=== PATIENT | female | born 1985 | race Caucasian/White ===

== ENCOUNTER 2019-07-11 23:07 | Inpatient (IN) ==
[2019-07-11] MEDS ORDERED: ONDANSETRON INJ 2 MG/ML 2 ML VIAL IV STA (23:30)
[2019-07-11] MEDS ORDERED: BENZONATATE 100 MG CAPSULE PO ONE (23:30)
[2019-07-11] MEDS ORDERED: SODIUM CHLORIDE 0.9% 1000ML 1,000 ML IV ONE (23:30)
[2019-07-12 00:30] LABS: Hematocrit (blood only) 31.4 % (37-47); Hemoglobin 9.8 g/dL (12.0-16.0); Mean Corpuscular Hemoglobin 24.1 pg (25-34); Mean Corpuscular Hgb Conc 31.2 g/dL (32-36); Mean Corpuscular Volume 77.1 fL (80-100); Platelet Count 449 K/uL (130-400); RDW Coefficient of Variation 15.1 % (11.5-14.5); RDW Standard Deviation 42.7 fL (36.4-46.3); Red Blood Count 4.07 M/uL (4.2-5.4); White Blood Count 18.82 K/uL (4.8-10.8)
[2019-07-12 00:39] LABS: Albumin Level 2.6 gm/dl (3.4-5.0); Calcium 8.8 mg/dl (8.5-10.1); Creatinine Clr Calc Pharmacy 73.8 ml/min; Est GFR (African American) 98.7; Est GFR (Non-African American) 85.1; Potassium 3.5 mmol/L (3.5-5.1)
[2019-07-12 00:41] LABS: Albumin Globulin Ratio 0.6 (0.9-2); Bilirubin,Total 0.2 mg/dl (0.2-1); Globulin 4.7 gm/dl (2.5-4.0); Total Protein 7.3 gm/dl (6.4-8.2)
[2019-07-12] MEDS ORDERED: PIPERACILLIN/TAZOBACTAM 4.5 GM/120 ML BAG IV ONE (00:42)
[2019-07-12] MEDS ORDERED: PIPERACILL/TAZOBAC CONSULT ACTIVE PRN (00:42)
[2019-07-12] MEDS ORDERED: ACETAMINOPHEN 325 MG TAB PO STA (00:44)
[2019-07-12 00:46] LABS: Influenza A virus by PCR Neg for Influ A (Neg); Influenza B virus by PCR Neg for Influ B (Neg)
[2019-07-12] MEDS ORDERED: DOXYCYCLINE HYCLATE 100 MG in DEXTROSE 5% 100 ML IV STA (01:10)
[2019-07-12 01:13] LABS: Basophils # (auto) 0.03 K/uL (0-0.2); Basophils % (auto) 0.2 %; Eosinophils # (auto) 0.32 K/uL (0-0.5); Eosinophils % (auto) 1.7 %; Hypochromasia Present; Immature Granulocytes % (auto) 1.6 %; Lymphocytes # (auto) 2.96 K/uL (1.2-3.4); Lymphocytes % (auto) 15.7 %; Monocytes % (auto) 5.8 %; Neutrophils # (auto) 14.11 K/uL (1.4-6.5)
[2019-07-12] MEDS ORDERED: LACTATED RINGER'S 1,000 ML IV STA (01:18)
--- NOTE | 2019-07-12 01:50 | Emergency Department Note ---
Entered by Janiya Mora acting as a scribe for History of Present Illness General Chief complaint: Cough Stated complaint: COUGH, SICK FOR WEEK Time Seen by Provider: 07/11/19 23:22 Source: patient Limitations: no limitations History of Present Illness Onset (ago): day(s) 10 Location: head Pain Consistency: + constant Maximum Pain Intensity: 9 Quality: + other (flu-like) Associated symptoms: + denies other symptoms (rhinorrhea, vomiting), + headaches and + other (sore throat) The patient is a 33 year old female who presents to the Emergency Room with complaints constant of flu-like symptoms for the past 10 days. She reports that she has at [facility] for rehabilitation from opiate addiction, and she was put on a Z-pack and steroids after evaluation by the staff physician. The patient complains of a severe, "pounding" headache. She notes that she has a sore throat. The patient complains of feeling dehydrated. She complains of a loss of appetite, noting she's only had one meal in the past week. The patient denies any rhinorrhea. She denies any vomiting, but notes that she has been gagging frequently. She has a history of esophageal surgery and so cannot physically vomit. The patient notes that she received Trazadone and Seroquel, her night medications, [employer]. Home Medications Home Medications Medication Instructions Recorded Confirmed Type azithromycin [Zithromax Z-Adithya] 250 mg PO UD 07/11/19 07/11/19 History buprenorphine-naloxone [Suboxone] See Rx Instructions .ROUTE .COMPLEX 07/11/19 07/11/19 History buspirone 5 mg PO HS PRN 07/11/19 07/12/19 History dextromethorphan-guaifenesin 10 ml PO Q4 PRN MDD 6 doses in 24 07/11/19 07/11/19 History [Tussin DM] hours diazepam [Valium] 10 mg PO QPM 07/11/19 07/11/19 History gabapentin [Neurontin] 600 mg PO HS 07/11/19 07/11/19 History hydroxyzine pamoate [Vistaril] 50 mg PO TID 07/11/19 07/11/19 History lansoprazole 30 mg PO BID 07/11/19 07/11/19 History levetiracetam [Keppra] 500 mg PO BID 07/11/19 07/11/19 History melatonin 10 mg PO HS 07/11/19 07/11/19 History metoprolol tartrate [Lopressor] 50 mg PO BID 07/11/19 07/11/19 History prednisone 10 mg PO UD 07/11/19 07/11/19 History quetiapine [Seroquel] 100 mg PO HS 07/11/19 07/11/19 History trazodone 150 mg PO HS 07/11/19 07/11/19 History Allergies Allergy/AdvReac Type Severity Reaction Status Date / Time No Known Allergies Allergy Unverified 07/11/19 23:30 Past Med/Surg History Medical History Acid reflux Hiatal hernia Social History Preferred Language: Swiss Feels Safe at Home: Yes Smoking Status: Never smoker Review of Systems See HPI for pertinent positives & negatives. and A total of 10 systems reviewed and were otherwise negative Physical Exam Vital Signs Vital Signs - 24 hr 07/11/19 23:14 07/12/19 00:24 Temperature 37.8 C H 37.0 C Temperature Source Oral Oral Pulse Rate 111 H Pulse Rate [Bilateral] 84 Pulse Rhythm [Bilateral] Regular Pulse Strength [Bilateral] Normal Respiratory Rate 18 16 Respiratory Effort / Characteristics Non-Labored Spontaneous Respiratory Depth Normal Respiratory Pattern Regular Blood Pressure 92/64 L Blood Pressure [Right Arm] 89/59 L Blood Pressure Mean 73 Blood Pressure Mean [Right Arm] 69 Blood Pressure Position [Right Arm] Lying Pulse Oximetry 91 96 Oxygen Delivery Method Room Air Room Air Sepsis Recent Fever Within 48 Hours No Sepsis New/Unexplained Change in Mental Status No Sepsis Action Taken by Nursing No Action Required Constitutional: Vital signs reviewed. Eyes: Pupils are equal round reactive to light. Conjunctiva are noninjected. ENT: Minimal erythema to the throat without exudate. Mucous membranes are very dry. Neck supple without meningeal signs. No trismus. Respiratory: Clear to auscultation bilaterally. Breath sounds are equal bilaterally. Coughing throughout exam. Cardiovascular: Tachycardic. Heart rate 111. Regular rhythm. GI: Soft, nondistended and nontender. Bowel sounds are present. Musculoskeletal: No peripheral edema. No lower extremity tenderness. Integumentary: No cyanosis. Neurological: The patient is slightly sleepy from her medications. No focal deficits. Psychiatric: Normal affect. Course Course 2324: The patient was evaluated in room A12B. A complete history and physical exam was performed. 0053: I updated the patient and discussed the results with her. Her systolic blood pressure was 87. I recommended admission, and Dr. Casarez was paged. 0057: I spoke with Dr. Casarez, [facility] hospitalist, about the patient's case. He will further evaluate the patient. 0140: Blood pressure 89/59. Heart rate is down to 84. Administered Medications Discontinued Medications Acetaminophen (Tylenol) 650 mg PO NOW STA Stop: 07/12/19 00:45 Last Admin: 07/12/19 01:03 Dose: 650 mg Documented by: [id number] Benzonatate (Tessalon Perle) 100 mg PO NOW ONE Stop: 07/11/19 23:31 Last Admin: 07/12/19 00:24 Dose: 100 mg Documented by: [id number] Sodium Chloride (Nss 1000ml) 1,000 mls @ 999 mls/hr IV .Q1H1M ONE Stop: 07/12/19 00:30 Last Admin: 07/12/19 00:24 Dose: 999 mls/hr Documented by: [id number] Ondansetron HCl (Zofran) 4 mg IV NOW STA Stop: 07/11/19 23:31 Last Admin: 07/12/19 00:24 Dose: 4 mg Documented by: [id number] Critical Care Time Critical Care Time: Yes Total Critical Care Time: 35 I have personally spent approximately 35 minutes of critical care time in the direct management of this patient. This includes bedside care, interpretation of diagnostic studies, and testing, discussion with consultants, patient, and family members, and other required patient management activities. This approximate 35 minutes is in excess of all separately billable procedures. Medical Decision Making Differential Diagnosis The differential diagnosis includes: pneumonia, influenza, infectious mononucleosis, strep pharyngitis, and dehydration. Medical Records Attestation: I reviewed the patient's medical records. I did perform a limited focused review of portions of the patient's old chart on the electronic medical record. The patient has had no recent pertinent visits to this hospital. Home Medications Current Medication List: was personally reviewed by me Laboratory Data Attestation: I reviewed the patient's lab results. Result diagrams: 07/12/19 00:11 07/12/19 00:11 Lab Results 07/11/19 07/12/19 07/12/19 Range/Units 23:56 00:11 00:11 WBC (4.8-10.8) K/uL RBC (4.2-5.4) M/uL Hgb (12.0-16.0) g/dL Hct (37-47) % MCV (80-100) fL MCH (25-34) pg MCHC (32-36) g/dL RDW Std Deviation (36.4-46.3) fL RDW Coeff of Andriy (11.5-14.5) % Plt Count (130-400) K/uL MPV (7.4-10.4) fL Immature Gran % (Auto) % Neut % (Auto) % Lymph % (Auto) % [place] % (Auto) % Eos % (Auto) % Baso % (Auto) % Immature Gran # (Auto) (0.00-0.02) K/uL Neut # (Auto) (1.4-6.5) K/uL Lymph # (Auto) (1.2-3.4) K/uL [place] # (Auto) (0.11-0.59) K/uL Eos # (Auto) (0-0.5) K/uL Baso # (Auto) (0-0.2) K/uL Hypochromasia Sodium 136 (136-145) mmol/L Potassium 3.5 (3.5-5.1) mmol/L Chloride 101 (98-107) mmol/L Carbon Dioxide 30 (21-32) mmol/L Anion Gap 5.0 (3-11) BUN 12 (7-18) mg/dl Creatinine 0.88 (0.6-1.2) mg/dl Est Cr Clr Drug Dosing 73.8 ml/min Est GFR ( Amer) 98.7 Est GFR (Non-Af Amer) 85.1 BUN/Creatinine Ratio 14.0 (10-20) Glucose 122 H (70-99) mg/dl Calcium 8.8 (8.5-10.1) mg/dl Total Bilirubin 0.2 (0.2-1) mg/dl AST 4 L (15-37) U/L ALT 11 L (12-78) U/L Alkaline Phosphatase 40 L (45-117) U/L Total Protein 7.3 (6.4-8.2) gm/dl Albumin 2.6 L (3.4-5.0) gm/dl Globulin 4.7 H (2.5-4.0) gm/dl Albumin/Globulin Ratio 0.6 L (0.9-2) Monoscreen Negative (Negative) Influenza Type A (PCR) Neg for Influ A (Neg) Influenza Type B (PCR) Neg for Influ B (Neg) 07/12/19 Range/Units 00:11 WBC 18.82 H (4.8-10.8) K/uL RBC 4.07 L (4.2-5.4) M/uL Hgb 9.8 L (12.0-16.0) g/dL Hct 31.4 L (37-47) % MCV 77.1 L (80-100) fL MCH 24.1 L (25-34) pg MCHC 31.2 L (32-36) g/dL RDW Std Deviation 42.7 (36.4-46.3) fL RDW Coeff of Andriy 15.1 H (11.5-14.5) % Plt Count 449 H (130-400) K/uL MPV 8.0 (7.4-10.4) fL Immature Gran % (Auto) 1.6 % Neut % (Auto) 75.0 % Lymph % (Auto) 15.7 % [place] % (Auto) 5.8 % Eos % (Auto) 1.7 % Baso % (Auto) 0.2 % Immature Gran # (Auto) 0.30 H (0.00-0.02) K/uL Neut # (Auto) 14.11 H (1.4-6.5) K/uL Lymph # (Auto) 2.96 (1.2-3.4) K/uL [place] # (Auto) 1.10 H (0.11-0.59) K/uL Eos # (Auto) 0.32 (0-0.5) K/uL Baso # (Auto) 0.03 (0-0.2) K/uL Hypochromasia Present Sodium (136-145) mmol/L Potassium (3.5-5.1) mmol/L Chloride (98-107) mmol/L Carbon Dioxide (21-32) mmol/L Anion Gap (3-11) BUN (7-18) mg/dl Creatinine (0.6-1.2) mg/dl Est Cr Clr Drug Dosing ml/min Est GFR ( Amer) Est GFR (Non-Af Amer) BUN/Creatinine Ratio (10-20) Glucose (70-99) mg/dl Calcium (8.5-10.1) mg/dl Total Bilirubin (0.2-1) mg/dl AST (15-37) U/L ALT (12-78) U/L Alkaline Phosphatase (45-117) U/L Total Protein (6.4-8.2) gm/dl Albumin (3.4-5.0) gm/dl Globulin (2.5-4.0) gm/dl Albumin/Globulin Ratio (0.9-2) Monoscreen (Negative) Influenza Type A (PCR) (Neg) Influenza Type B (PCR) (Neg) Imaging Data Attestation: I personally reviewed and interpreted this imaging study as follows: Radiologist's Impression: XR CHEST 2V: Right middle lobe pneumonia. No c ardiomegaly. No pneumothorax. Blood Pressure Blood Pressure Findings: Low blood pressure Blood Pressure Disposition: Referred to patients primary care provider [facility] Narrative I did evaluate the patient as noted above. The patient is presenting with flulike symptoms for the past 10 days. She has a productive cough and has been on prednisone as well as azithromycin. She presents today because she continues to feel ill and has not been able to eat very much over the past week. She stated that she is lost 12 pounds. She feels very dehydrated. IV access was established. The patient was placed on a continuous diamond assorter. Cardiac monitoring: Indication: Sepsis, hypotension, and tachycardia. Rate and rhythm: Sinus tachycardia and normal sinus rhythm. No dysrhythmia. Patient is hypotensive on arrival but states that her normal systolic blood pressure is in the 90s. She does appear quite dehydrated and so I did treat her with a liter of normal saline IV. She was also given Zofran IV. I did obtain a rapid strep test which was negative. I did order and personally reviewed the images of the patient's chest x-ray as described above. She has a right middle lobe consolidation consistent with pneumonia. I did order blood cultures and a lactic acid. I did treat her with Zosyn IV. I did order and review the patient's blood work as noted in the electronic medical record. Her white blood cell count is over 18,000. She is anemic with a hemoglobin of 9.8. Electrolytes are unremarkable. Lactic acid is pending. I did reassess the patient. Her blood pressures slightly lower than it was on initial evaluation. I did recommend hospitalization for sepsis. She will need continued IV fluids and IV antibiotics. She was agreeable. I did discuss the case with the hospitalist and bilingual patient support caseworker. Impression & Plan Sepsis, Right middle lobe pneumonia, Hypotension, Dehydration, Anemia Discharge Plan Visit Data Chief Complaint: Cough Stated Complaint: COUGH, SICK FOR WEEK ED Provider: Osvaldo Brower Discharge Problem: Sepsis, Right middle lobe pneumonia, Hypotension, Dehydration, Anemia Patient Disposition: Being Evaluated by Hospitalist Forms Stand Alone Forms: My [facility] Prescriptions Prescriptions: No Action hydroxyzine pamoate [Vistaril] 50 mg Capsule 50 mg PO TID RF: 0 lansoprazole 30 mg Capsule,Delayed Release(Dr/Ec) 30 mg PO BID RF: 0 metoprolol tartrate [Lopressor] 50 mg Tablet 50 mg PO BID RF: 0 diazepam [Valium] 10 mg Tablet 10 mg PO QPM RF: 0 buprenorphine-naloxone [Suboxone] 2-0.5 mg Film See Rx Instructions .ROUTE .COMPLEX RF: 0 gabapentin [Neurontin] 600 mg Tablet 600 mg PO HS RF: 0 quetiapine [Seroquel] 100 mg Tablet 100 mg PO HS RF: 0 trazodone 150 mg Tablet 150 mg PO HS RF: 0 melatonin 10 mg Tablet 10 mg PO HS RF: 0 prednisone 10 mg Tablet 10 mg PO UD RF: 0 azithromycin [Zithromax Z-Adithya] 250 mg Tablet 250 mg PO UD RF: 0 levetiracetam [Keppra] 500 mg Tablet 500 mg PO BID RF: 0 buspirone 5 mg Tablet 5 mg PO HS PRN (Reason: Unknown) RF: 0 dextromethorphan-guaifenesin [Tussin DM] 10-100 mg/5 mL Syrup 10 ml PO Q4 MDD 6 doses in 24 hours PRN (Reason: Cough) RF: 0 Referrals Referrals: PCP,NO [Primary Care Provider] - Discharge Problem: Sepsis Qualifiers: Sepsis type: sepsis due to unspecified organism Sepsis acute organ dysfunction status: unspecified Qualified Code(s): A41.9 - Sepsis, unspecified organism Right middle lobe pneumonia Qualifiers: Pneumonia type: due to unspecified organism Qualified Code(s): J18.9 - Pneumonia, unspecified organism Hypotension Qualifiers: Hypotension type: unspecified hypotension type Qualified Code(s): I95.9 - Hypotension, unspecified Anemia Qualifiers: Anemia type: unspecified type Qualified Code(s): D64.9 - Anemia, unspecified The scribe's documentation has been prepared under my direction and personally reviewed by me in its entirety. I confirm that the note above accurately reflects all work, treatment, procedures, and medical decision making performed by me.
[2019-07-12 02:05] LABS: Reticulocyte % 0.8 % (0.5-2.0); Reticulocytes # 0.03 10^6/uL (0.02-0.10)
--- NOTE | 2019-07-12 02:07 | History & Physical Report ---
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 (Patient admits to heavy menses.) anxiety/mood disorder, at baseline opioid/benzodiazepine abuse as per records Hyperglycemia likely steroid-induced, rule out DM Medical telemetry Cultures, Doxycycline, Zosyn IVF Anemia work-up, transfuse PRBC if hemoglobin less than 7 and/or for symptomatic anemia Outpatient Gynecology work-up for heavy menses. Check hemoglobin A1c DVT prophylaxis. Lovenox subcu Full code History of Present Illness Chief Complaint: Worsening cough, S OB Primary Care Provider: Dr. Hilda Loco [place], [place] History obtained from patient and records. 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 2 weeks ago patient voluntarily committed herself to a drug rehab facility in [facility]. A few days later patient noted dry later junky cough symptoms without shortness of breath and chest pain. Patient denies aspiration, no fever, no chills. Patient not sure about sick contacts. Patient was told she just had a cold. Patient requested transfer to [facility], the local drug rehab facility last week due to displeasure with [place] rehab facility. Patient started by drug rehab physician on azithromycin and prednisone course for possible bronchitis. Worsening cough symptoms over the last few days. No chest pain. Some chills as per patient. Poor appetite. Patient received Zosyn at the ER. Medical History as above Surgical History : Henia operation, other intra-abdominal surgeries, tendon surgery left upper extremity Family History : Heart disease Personal/Social history : Non-smoker, no EtOH intake, currently unemployed, prior work as a energy specialist Allergies Allergy/AdvReac Type Severity Reaction Status Date / Time No Known Allergies Allergy Unverified 07/11/19 23:30 Home Medications Home Medications Medication Instructions Recorded Confirmed Type azithromycin [Zithromax Z-Adithya] 250 mg PO UD 07/11/19 07/11/19 History buprenorphine-naloxone [Suboxone] See Rx Instructions .ROUTE .COMPLEX 07/11/19 07/11/19 History buspirone 5 mg PO HS PRN 07/11/19 07/12/19 History dextromethorphan-guaifenesin 10 ml PO Q4 PRN MDD 6 doses in 24 07/11/19 07/11/19 History [Tussin DM] hours diazepam [Valium] 10 mg PO QPM 07/11/19 07/11/19 History gabapentin [Neurontin] 600 mg PO HS 07/11/19 07/11/19 History hydroxyzine pamoate [Vistaril] 50 mg PO TID 07/11/19 07/11/19 History lansoprazole 30 mg PO BID 07/11/19 07/11/19 History levetiracetam [Keppra] 500 mg PO BID 07/11/19 07/11/19 History melatonin 10 mg PO HS 07/11/19 07/11/19 History metoprolol tartrate [Lopressor] 50 mg PO BID 07/11/19 07/11/19 History prednisone 10 mg PO UD 07/11/19 07/11/19 History quetiapine [Seroquel] 100 mg PO HS 07/11/19 07/11/19 History trazodone 150 mg PO HS 07/11/19 07/11/19 History Past Med/Surg History Medical History Acid reflux Hiatal hernia Social History Preferred Language: Indian Communication Ability: Effective Licensed Embalmer Supervisor Required: No Beliefs That Will Affect Care: None Current Living Situation: Family Other Information That Helps Us Care for You: No Feels Safe at Home: Yes Safety Concerns: Feels Safe At This Time Smoking Status: Never smoker Hx Alcohol Use: Yes Alcohol type: wine and hard liquor Hx Substance Use: Yes substance use type: former substance user, heroin and opiates Last Used Substance: Days (ago) Last Used Substance Other:: Last used on June 22 2019 Review of Systems Review of Systems: As per HPI, all 10 systems reviewed, heavy menses, all other ROS negative Physical Exam Physical Exam: GENERAL: Slightly uncomfortable, no respiratory distress, occasionally coughing, lethargic SKIN: Pallor , warm HEENT: Pale palpebral conjunctivae, no ptosis, dry buccal mucosa NECK : Supple, no tenderness CHEST : Decreased breath sounds , no tenderness HEART : RRR, no obvious murmurs ABDOMEN: Some distention, nontender EXTREMITIES : No LE swelling/tenderness, no other conspicuous deformities noted NEUROLOGIC : Lethargic , no facial asymmetry, no other gross focality Results & Data Vital Signs (Past 12 Hours) Vital Signs Temp Pulse Pulse Resp BP BP Pulse Ox 07/12/19 00:24 37.0 C 84 16 89/59 L 96 07/11/19 23:14 37.8 C H 111 H 18 92/64 L 91 Laboratory Results Laboratory Results WBC 18.82 K/uL (4.8-10.8) H 07/12/19 00:11 RBC 4.07 M/uL (4.2-5.4) L 07/12/19 00:11 Hgb 9.8 g/dL (12.0-16.0) L 07/12/19 00:11 Hct 31.4 % (37-47) L 07/12/19 00:11 MCV 77.1 fL (80-100) L 07/12/19 00:11 MCH 24.1 pg (25-34) L 07/12/19 00:11 MCHC 31.2 g/dL (32-36) L 07/12/19 00:11 RDW Std Deviation 42.7 fL (36.4-46.3) 07/12/19 00:11 RDW Coeff of Andriy 15.1 % (11.5-14.5) H 07/12/19 00:11 Plt Count 449 K/uL (130-400) H 07/12/19 00:11 MPV 8.0 fL (7.4-10.4) 07/12/19 00:11 Immature Gran % (Auto) 1.6 % 07/12/19 00:11 Neut % (Auto) 75.0 % 07/12/19 00:11 Lymph % (Auto) 15.7 % 07/12/19 00:11 [place] % (Auto) 5.8 % 07/12/19 00:11 Eos % (Auto) 1.7 % 07/12/19 00:11 Baso % (Auto) 0.2 % 07/12/19 00:11 Reticulocyte % (Auto) 0.8 % (0.5-2.0) 07/12/19 01:52 Immature Gran # (Auto) 0.30 K/uL (0.00-0.02) H 07/12/19 00:11 Neut # (Auto) 14.11 K/uL (1.4-6.5) H 07/12/19 00:11 Lymph # (Auto) 2.96 K/uL (1.2-3.4) 07/12/19 00:11 [place] # (Auto) 1.10 K/uL (0.11-0.59) H 07/12/19 00:11 Eos # (Auto) 0.32 K/uL (0-0.5) 07/12/19 00:11 Baso # (Auto) 0.03 K/uL (0-0.2) 07/12/19 00:11 Reticulocyte # 0.03 10^6/uL (0.02-0.10) 07/12/19 01:52 Hypochromasia Present 07/12/19 00:11 Sodium 136 mmol/L (136-145) 07/12/19 00:11 Potassium 3.5 mmol/L (3.5-5.1) 07/12/19 00:11 Chloride 101 mmol/L (98-107) 07/12/19 00:11 Carbon Dioxide 30 mmol/L (21-32) 07/12/19 00:11 Anion Gap 5.0 (3-11) 07/12/19 00:11 BUN 12 mg/dl (7-18) 07/12/19 00:11 Creatinine 0.88 mg/dl (0.6-1.2) 07/12/19 00:11 Est Cr Clr Drug Dosing 73.8 ml/min 07/12/19 00:11 Est GFR ( Amer) 98.7 07/12/19 00:11 Est GFR (Non-Af Amer) 85.1 07/12/19 00:11 BUN/Creatinine Ratio 14.0 (10-20) 07/12/19 00:11 Glucose 122 mg/dl (70-99) H 07/12/19 00:11 Calcium 8.8 mg/dl (8.5-10.1) 07/12/19 00:11 Total Bilirubin 0.2 mg/dl (0.2-1) 07/12/19 00:11 AST 4 U/L (15-37) L 07/12/19 00:11 ALT 11 U/L (12-78) L 07/12/19 00:11 Alkaline Phosphatase 40 U/L (45-117) L 07/12/19 00:11 Total Protein 7.3 gm/dl (6.4-8.2) 07/12/19 00:11 Albumin 2.6 gm/dl (3.4-5.0) L 07/12/19 00:11 Globulin 4.7 gm/dl (2.5-4.0) H 07/12/19 00:11 Albumin/Globulin Ratio 0.6 (0.9-2) L 07/12/19 00:11 Monoscreen Negative (Negative) 07/12/19 00:11 Influenza Type A (PCR) Neg for Influ A (Neg) 07/11/19 23:56 Influenza Type B (PCR) Neg for Influ B (Neg) 07/11/19 23:56 Diagnostic Findings Chest x-ray as per my interpretation right lung infiltrate (1) Sepsis Sepsis acute organ dysfunction status: unspecified Sepsis type: sepsis due to unspecified organism Qualified Code(s): A41.9 - Sepsis, unspecified organism
[2019-07-12 02:20] LABS: Ferritin 29.9 ng/ml (8-388); Thyroid Stimulating Hormone 2.96 uIu/ml (0.300-4.500)
[2019-07-12 02:23] LABS: Folate (Folic Acid) 10.98 ng/ml (>5.38)
[2019-07-12] MEDS ORDERED: IBUPROFEN 200 MG TAB PO PRN (03:00)
[2019-07-12] MEDS ORDERED: PROMETHAZINE HCL 12.5 MG in SODIUM CHLORIDE 0.9% 50 ML IV PRN (03:00)
[2019-07-12] MEDS ORDERED: KETOROLAC TROMETHAMINE 15 MG/ML VIAL IV PRN (03:00)
[2019-07-12] MEDS ORDERED: ALBUT/IPRATROP 3MG/0.5MG NEB 3 ML VIAL NEB PRN (03:57)
[2019-07-12] MEDS ORDERED: LACTATED RINGER'S 1,000 ML IV ONE (05:00)
--- NOTE | 2019-07-12 06:29 | XRay Report ---
XR chest 2V PA/lateral CLINICAL HISTORY: cough eval for pna COMPARISON STUDY: No previous studies for comparison. FINDINGS: Right middle lobe infiltrate with associated mild consolidative change. Patchy right upper lobe parenchymal infiltrate. Left lung is clear. IMPRESSION: Right middle lobe infiltrate. Patchy right upper lobe infiltrate. ACT 112: Negative or not required by law. The above report was generated using voice recognition software. It may contain grammatical, syntax or spelling errors. Electronically signed by: Geo Burns M.D. 07/12/2019 6:28 AM
[2019-07-12 06:54] LABS: Estimated Average Glucose 143 mg/dl; Hemoglobin A1C 6.6 % (4.5-5.6)
[2019-07-12] MEDS: PIPERACILLIN/TAZOBACTAM 3.375 GM in DEXTROSE 5% 100 ML IV SCH ×2 (08:56→16:07)
[2019-07-12] MEDS: ENOXAPARIN INJ 30 MG/0.3 ML SYR SQ SCH (08:59)
[2019-07-12] MEDS: levETIRAcetam 500 MG TAB PO SCH ×2 (08:59→20:56)
[2019-07-12] MEDS ORDERED: PANTOprazole 40 MG TAB PO SCH (09:00)
[2019-07-12] MEDS ORDERED: BUPRENORPHINE/NALOXONE 2/0.5MG 1 TAB SL SCH ×2 (09:00→22:00)
[2019-07-12] MEDS ORDERED: Nursing to Pharmacy Communication ONE ×3 (10:47→21:24)
--- NOTE | 2019-07-12 12:53 | Communication Note ---
Date of Service: July 12, 2019 Pt was seen and examined Lying in bed with no distress Pt said that she feels very tired and sleepy Pt said that she continue to have a dry cough Denies any chest pain, palpitation and SOB Exam General- No acute distress Head- atraumatic Eyes- PERRL, EOMI, ENT- oropharynx clear Neck- supple, no JVD Lungs- +course BS Heart- regular rhythm; no murmur Abdomen- normal bowel sounds, soft, nontender Extremities- no calf tenderness Neuro- alert, oriented, PERRL, EOMI; no facial palsy; no dysarthria Skin- warm & dry A/P Sepsis Pneumonia Meets sepsis criteria on admission with tachycardia, Leukocytosis 18K She was stating with outpatient therapy with Zithromax and prednisone CXR showed right middle lobe infiltrate. Patchy right upper lobe infiltrate. Influenza PCR negative, Lactate negative Received IV zosyn in the ER Currently on IV doxy and Zosyn IV Blood cx and sputum cx pending Will add guaifenesin and neb treatment Diabetes Elevated Glucose Hba1c 6.6 ( result discussed with patient) Advised pt to follow a healthy diabetes diet and limited concentrated sugar Check Hba1c in 6 months Will consider to add on insulin sliding scale if BS elevates Anxiety/Mood disorder Opioid/Benzodiazepine dependence Currently is being treated for substance abuse at [facility] Valium taper dose and Suboxone DVT px on Lovenox Code Status full code
[2019-07-12] MEDS: diazePAM 5 MG TABLET PO SCH (16:59)
[2019-07-12] MEDS: PANTOprazole 40 MG TAB PO SCH (17:36)
[2019-07-12] MEDS: TRAZODONE HCL 50 MG TAB PO SCH (20:56)
[2019-07-12] MEDS: QUETIAPINE FUMARATE 100 MG TABLET PO SCH (20:56)
[2019-07-12] MEDS: DOXYCYCLINE HYCLATE 100 MG CAP PO SCH (20:56)
[2019-07-12] MEDS: GABAPENTIN 600 MG TAB PO SCH (20:56)
[2019-07-12] MEDS ORDERED: diazePAM 5 MG TABLET PO SCH (21:00)
[2019-07-13] MEDS: PIPERACILLIN/TAZOBACTAM 3.375 GM in DEXTROSE 5% 100 ML IV SCH ×4 (00:12→23:19)
[2019-07-13 07:09] LABS: Basophils # (auto) 0.05 K/uL (0-0.2); Basophils % (auto) 0.4 %; Eosinophils # (auto) 0.67 K/uL (0-0.5); Eosinophils % (auto) 5.2 %; Hematocrit (blood only) 29.2 % (37-47); Hemoglobin 8.9 g/dL (12.0-16.0); Immature Granulocytes % (auto) 2.3 %; Lymphocytes # (auto) 2.57 K/uL (1.2-3.4); Mean Corpuscular Hemoglobin 23.6 pg (25-34); Mean Corpuscular Hgb Conc 30.5 g/dL (32-36); Mean Corpuscular Volume 77.5 fL (80-100); Mean Platelet Volume 8.1 fL (7.4-10.4); Monocytes # (auto) 0.97 K/uL (0.11-0.59); Monocytes % (auto) 7.6 %; Neutrophils # (auto) 8.28 K/uL (1.4-6.5); Neutrophils % (auto) 64.5 %; Platelet Count 463 K/uL (130-400); RDW Coefficient of Variation 15.3 % (11.5-14.5); RDW Standard Deviation 43.2 fL (36.4-46.3); Red Blood Count 3.77 M/uL (4.2-5.4); White Blood Count 12.84 K/uL (4.8-10.8)
[2019-07-13 07:38] LABS: Creatinine Clr Calc Pharmacy 82.2 ml/min; Est GFR (African American) 112.4
[2019-07-13] MEDS: BUPRENORPHINE/NALOXONE 2/0.5MG 1 TAB PO SCH ×2 (08:58→21:07)
[2019-07-13] MEDS: DOXYCYCLINE HYCLATE 100 MG CAP PO SCH ×2 (08:59→21:10)
[2019-07-13] MEDS: PANTOprazole 40 MG TAB PO SCH ×2 (09:00→16:53)
[2019-07-13] MEDS: ENOXAPARIN INJ 30 MG/0.3 ML SYR SQ SCH (09:00)
[2019-07-13] MEDS: levETIRAcetam 500 MG TAB PO SCH ×2 (09:00→21:09)
--- NOTE | 2019-07-13 16:28 | Hospitalist Progress Note ---
Date of Service July 13, 2019 Assessment & Plan (1) Sepsis: (2) Right middle lobe pneumonia: Meets sepsis criteria on admission with tachycardia, Leukocytosis 18K She was stating with outpatient therapy with Zithromax and prednisone CXR showed right middle lobe infiltrate. Patchy right upper lobe infiltrate. Influenza PCR negative, Lactate negative Received IV zosyn in the ER Currently on IV doxy and Zosyn IV Blood cx and sputum cx no growth Adding guaifenesin Continue monitor Diabetes Elevated Glucose Hba1c 6.6 ( result discussed with patient) Advised pt to follow a healthy diabetes diet and limited concentrated sugar Check Hba1c in 6 months Will consider to add on insulin sliding scale if BS elevates Anxiety/Mood disorder Opioid/Benzodiazepine dependence Currently is being treated for substance abuse at [facility] Valium taper dose and Suboxone Constipation Possible related to medication Will add dulcolax DVT px on Lovenox Code Status full code Disposition Will discharge to [facility] tomorrow Subjective Pt was seen and examined Lying in bed with no distress Pt said that she continues to have a dry cough She said that she also has not had a BM Denies any chest pain, palpitation and SOB Physical Exam Physical Exam: General- No acute distress Head- atraumatic Eyes- PERRL, EOMI, ENT- oropharynx clear Neck- supple, no JVD Lungs- Coarse BS Heart- +tachycardia; no murmur Abdomen- normal bowel sounds, soft, nontender Extremities- no calf tenderness Neuro- alert, oriented x 3; PERRL, EOMI; no facial palsy; no dysarthria Skin- warm & dry Results & Data Vital Signs (Past 12 Hours) Vital Signs Temp Pulse Pulse Resp BP BP Pulse Ox 07/13/19 15:35 37.1 C 79 18 94/71 L 93 07/13/19 14:20 123 H 07/13/19 11:19 37.0 C 101 H 18 91/65 L 92 07/13/19 07:50 37.1 C 102 H 18 115/68 93 07/13/19 07:29 104 H 20 94 07/13/19 07:00 100 H (1) Right middle lobe pneumonia Pneumonia type: due to unspecified organism Qualified Code(s): J18.9 - Pneumonia, unspecified organism (2) Sepsis Sepsis acute organ dysfunction status: unspecified Sepsis type: sepsis due to unspecified organism Qualified Code(s): A41.9 - Sepsis, unspecified organism
[2019-07-13] MEDS: diazePAM 5 MG TABLET PO SCH (16:52)
[2019-07-13] MEDS ORDERED: bisacodyL 5 MG TABEC PO ONE (17:00)
[2019-07-13] MEDS: guaiFENesin 200 MG TAB PO SCH ×2 (17:09→21:12)
[2019-07-13] MEDS: TRAZODONE HCL 50 MG TAB PO SCH (21:08)
[2019-07-13] MEDS: QUETIAPINE FUMARATE 100 MG TABLET PO SCH (21:10)
[2019-07-13] MEDS: GABAPENTIN 600 MG TAB PO SCH (21:10)
[2019-07-14] MEDS: guaiFENesin 200 MG TAB PO SCH ×6 (01:50→21:10)
[2019-07-14 06:11] LABS: Hematocrit (blood only) 31.9 % (37-47); Hemoglobin 9.5 g/dL (12.0-16.0); Mean Corpuscular Hemoglobin 23.1 pg (25-34); Mean Corpuscular Hgb Conc 29.8 g/dL (32-36); Mean Corpuscular Volume 77.6 fL (80-100); Mean Platelet Volume 8.2 fL (7.4-10.4); Platelet Count 438 K/uL (130-400); RDW Coefficient of Variation 15.2 % (11.5-14.5); RDW Standard Deviation 42.9 fL (36.4-46.3); Red Blood Count 4.11 M/uL (4.2-5.4); White Blood Count 8.75 K/uL (4.8-10.8)
[2019-07-14 06:35] LABS: Creatinine Clr Calc Pharmacy 85.5 ml/min; Est GFR (African American) 117.8; Est GFR (Non-African American) 101.6
[2019-07-14] MEDS: PIPERACILLIN/TAZOBACTAM 3.375 GM in DEXTROSE 5% 100 ML IV SCH (08:38)
[2019-07-14] MEDS: levETIRAcetam 500 MG TAB PO SCH ×2 (08:42→20:11)
[2019-07-14] MEDS: DOXYCYCLINE HYCLATE 100 MG CAP PO SCH ×2 (08:43→20:10)
[2019-07-14] MEDS: PANTOprazole 40 MG TAB PO SCH ×2 (08:44→17:17)
[2019-07-14] MEDS: ENOXAPARIN INJ 30 MG/0.3 ML SYR SQ SCH (08:44)
[2019-07-14] MEDS ORDERED: bisacodyL 10 MG SUPP PR STA ×2 (09:41→16:36)
--- NOTE | 2019-07-14 12:30 | Hospitalist Progress Note ---
Date of Service July 14, 2019 Assessment & Plan (1) Sepsis: (2) Right middle lobe pneumonia: Meets sepsis criteria on admission with tachycardia, Leukocytosis 18K She was stating with outpatient therapy with Zithromax and prednisone CXR showed right middle lobe infiltrate. Patchy right upper lobe infiltrate. Influenza PCR negative, Lactate negative Received IV zosyn in the ER Currently on IV doxy and Zosyn IV Will d/c IV Zosyn and add Augmentin Blood cx and sputum cx no growth Continue guaifenesin Continue monitor Strep Throat Throat cx grew Group A strep On IV Zosyn day 3, will deescalate to Augmentin 875mg BID Blood cx and sputum cx negative so far Diabetes Elevated Glucose Hba1c 6.6 ( result discussed with patient) Advised pt to follow a healthy diabetes diet and limited concentrated sugar Check Hba1c in 6 months Will consider to add on insulin sliding scale if BS elevates Anxiety/Mood disorder Opioid/Benzodiazepine dependence Currently is being treated for substance abuse at [facility] rehab Valium taper dose and Suboxone Constipation Possible related to medication Pt said that she usually gets a dulcolax MS Dulcolax MS given. if no BM will give an enema DVT px on Lovenox Code Status full code Disposition Possibe discharge to [facility] today Subjective Pt was seen and examined Lying in bed with no distress Pt said that cough slightly improves She looks more awake today Denies any chest pain, palpitation, dizziness and SOB Physical Exam Physical Exam: General- No acute distress Head- atraumatic Eyes- PERRL, EOMI, ENT- oropharynx clear Neck- supple, no JVD Lungs- No wheezing Heart- +tachycardia; no murmur Abdomen- normal bowel sounds, soft, nontender Extremities- no calf tenderness Neuro- alert, oriented x 3; PERRL, EOMI; no facial palsy; no dysarthria Skin- warm & dry Results & Data Vital Signs (Past 12 Hours) Vital Signs Temp Pulse Pulse Resp BP Pulse Ox 07/14/19 11:00 36.8 C 95 H 18 98/66 L 92 07/14/19 07:49 36.7 C 83 18 89/64 L 94 07/14/19 07:00 96 H 07/14/19 04:24 37.1 C 96 H 18 97/66 L 91 (1) Right middle lobe pneumonia Pneumonia type: due to unspecified organism Qualified Code(s): J18.9 - Pneumonia, unspecified organism (2) Sepsis Sepsis acute organ dysfunction status: unspecified Sepsis type: sepsis due to unspecified organism Qualified Code(s): A41.9 - Sepsis, unspecified organism
[2019-07-14] MEDS: diazePAM 5 MG TABLET PO SCH (17:16)
[2019-07-14] MEDS: AMOXICILLIN/CLAVULANATE 875 MG TAB PO SCH (17:18)
[2019-07-14] MEDS: GABAPENTIN 600 MG TAB PO SCH (20:10)
[2019-07-14] MEDS ORDERED: BUPRENORPHINE/NALOXONE 2/0.5MG 1 TAB PO SCH (21:00)
[2019-07-14] MEDS ORDERED: TRAZODONE HCL 100 MG TAB PO SCH (21:00)
[2019-07-14] MEDS: QUETIAPINE FUMARATE 100 MG TABLET PO SCH (21:10)
[2019-07-15] MEDS: guaiFENesin 200 MG TAB PO SCH ×4 (01:20→15:07)
[2019-07-15] MEDS: ACETAMINOPHEN 325 MG TAB PO PRN ×2 (03:24→12:20)
[2019-07-15 07:44] LABS: BUN Creatinine Ratio 16.4 (10-20); Calcium 9.2 mg/dl (8.5-10.1); Creatinine Clr Calc Pharmacy 80.2 ml/min; Est GFR (African American) 109.1; Est GFR (Non-African American) 94.1; Potassium 3.7 mmol/L (3.5-5.1)
[2019-07-15] MEDS: levETIRAcetam 500 MG TAB PO SCH (08:19)
[2019-07-15] MEDS: AMOXICILLIN/CLAVULANATE 875 MG TAB PO SCH (08:19)
[2019-07-15] MEDS: DOXYCYCLINE HYCLATE 100 MG CAP PO SCH (08:19)
[2019-07-15] MEDS: ENOXAPARIN INJ 30 MG/0.3 ML SYR SQ SCH (08:19)
[2019-07-15] MEDS: PANTOprazole 40 MG TAB PO SCH (08:19)
--- NOTE | 2019-07-15 11:53 | Hospitalist Progress Note ---
Date of Service July 15, 2019 Assessment & Plan (1) Sepsis: (2) Right middle lobe pneumonia: Meets sepsis criteria on admission with tachycardia, Leukocytosis 18K She was stating with outpatient therapy with Zithromax and prednisone CXR showed right middle lobe infiltrate. Patchy right upper lobe infiltrate. Influenza PCR negative, Lactate negative Received IV zosyn in the ER Received IV doxy and Zosyn IV IV Zosyn was discontinued started on Augmentin on 07/14/19 Blood cx and sputum cx no growth Will discharge on doxycycline and Augmentin Continue guaifenesin Continue monitor Strep Throat Throat cx grew Group A strep Received IV Zosyn for 3 days , that changed to Augmentin 875mg BID Blood cx and sputum cx negative so far Diabetes Elevated Glucose Hba1c 6.6 ( result discussed with patient) Advised pt to follow a healthy diabetes diet and limited concentrated sugar Check Hba1c in 6 months Anxiety/Mood disorder Opioid/Benzodiazepine dependence Currently is being treated for substance abuse at [facility] Valium taper dose and Suboxone Constipation Possible related to medication Pt said that she usually gets a dulcolax [place] Dulcolax [place] given x2 Pt had a BM DVT px on Lovenox Code Status full code Disposition Discharge to [facility] today Subjective Pt was seen and examined Sitting in bed with no distress Pt said that her cough improves significantly Denies any chest pain, palpitation, fever and SOB Physical Exam Physical Exam: General- No acute distress Head- atraumatic Eyes- PERRL, EOMI, ENT- oropharynx clear Neck- supple, no JVD Lungs- No wheezing Heart- regular, no murmur Abdomen- normal bowel sounds, soft, nontender Extremities- no calf tenderness Neuro- alert, oriented x 3; PERRL, EOMI; no facial palsy; no dysarthria Skin- warm & dry Results & Data Vital Signs (Past 12 Hours) Vital Signs Temp Pulse Pulse Resp BP Pulse Ox 07/15/19 11:25 36.8 C 80 18 100/67 90 07/15/19 07:59 36.6 C 86 18 96/65 L 95 07/15/19 07:00 83 07/15/19 03:59 36.8 C 73 19 92/61 L 98 07/14/19 23:50 94 H (1) Right middle lobe pneumonia Pneumonia type: due to unspecified organism Qualified Code(s): J18.9 - Pneumonia, unspecified organism (2) Sepsis Sepsis acute organ dysfunction status: unspecified Sepsis type: sepsis due to unspecified organism Qualified Code(s): A41.9 - Sepsis, unspecified organism
--- NOTE | 2019-07-15 12:15 | Discharge Summary ---
Date of Service July 15, 2019 Admission HPI Per Admitting Provider History obtained from patient and records. 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 2 weeks ago patient voluntarily committed herself to a drug rehab facility in [facility]. A few days later patient noted dry later junky cough symptoms without shortness of breath and chest pain. Patient denies aspiration, no fever, no chills. Patient not sure about sick contacts. Patient was told she just had a cold. Patient requested transfer to [facility], the local drug rehab facility last week due to displeasure with [place] rehab facility. Patient started by drug rehab physician on azithromycin and prednisone course for possible bronchitis. Worsening cough symptoms over the last few days. No chest pain. Some chills as per patient. Poor appetite. Patient received Zosyn at the ER. Medical History as above Surgical History : Henia operation, other intra-abdominal surgeries, tendon surgery left upper extremity Family History : Heart disease Personal/Social history : Non-smoker, no EtOH intake, currently unemployed, prior work as a specialized language instructor Admission Exam Per Admitting Provider GENERAL: Slightly uncomfortable, no respiratory distress, occasionally coughing, lethargic SKIN: Pallor , warm HEENT: Pale palpebral conjunctivae, no ptosis, dry buccal mucosa NECK : Supple, no tenderness CHEST : Decreased breath sounds , no tenderness HEART : RRR, no obvious murmurs ABDOMEN: Some distention, nontender EXTREMITIES : No LE swelling/tenderness, no other conspicuous deformities noted NEUROLOGIC : Lethargic , no facial asymmetry, no other gross focality Principal Diagnosis Sepsis Right middle lobe pneumonia Strep Throat Diabetes Anxiety/Mood disorder Constipation Discharge Exam General- No acute distress Head- atraumatic Eyes- PERRL, EOMI, ENT- oropharynx clear Neck- supple, no JVD Lungs- No wheezing Heart- regular, no murmur Abdomen- normal bowel sounds, soft, nontender Extremities- no calf tenderness Neuro- alert, oriented x 3; PERRL, EOMI; no facial palsy; no dysarthria Skin- warm & dry Discharge Data Allergies Allergy/AdvReac Type Severity Reaction Status Date / Time No Known Allergies Allergy Unverified 07/11/19 23:30 Consultations 07/12/19 00:52 ED Decision to Admit Stat Ordered Studies XR chest 2V PA/lateral CLINICAL HISTORY: cough eval for pna COMPARISON STUDY: No previous studies for comparison. FINDINGS: Right middle lobe infiltrate with associated mild consolidative change. Patchy right upper lobe parenchymal infiltrate. Left lung is clear. IMPRESSION: Right middle lobe infiltrate. Patchy right upper lobe infiltrate. ACT 112: Negative or not required by law. The above report was generated using voice recognition software. It may contain grammatical, syntax or spelling errors. Electronically signed by: Geo Burns M.D. 07/12/2019 6:28 AM Dictated: 07/12/19626 Transcribed: 07/12/19626 Hospital Course (1) Sepsis: (2) Right middle lobe pneumonia: Meets sepsis criteria on admission with tachycardia, Leukocytosis 18K She was stating with outpatient therapy with Zithromax and prednisone CXR showed right middle lobe infiltrate. Patchy right upper lobe infiltrate. Influenza PCR negative, Lactate negative Received IV zosyn in the ER Received IV doxy and Zosyn IV IV Zosyn was discontinued started on Augmentin on 07/14/19 Blood cx and sputum cx no growth Will discharge on doxycycline and Augmentin Continue guaifenesin Continue monitor Strep Throat Throat cx grew Group A strep Received IV Zosyn for 3 days , that changed to Augmentin 875mg BID Blood cx and sputum cx negative so far Diabetes Elevated Glucose Hba1c 6.6 ( result discussed with patient) Advised pt to follow a healthy diabetes diet and limited concentrated sugar Check Hba1c in 6 months Anxiety/Mood disorder Opioid/Benzodiazepine dependence [facility] Valium taper dose and Suboxone Constipation Possible related to medication Pt said that she usually gets a dulcolax [place] Dulcolax [place] given x2 Pt had a BM DVT px on Lovenox Code Status full code Disposition Discharge to [facility] today Total Time Total Time Spent Total Time Spent (In Minutes): 35 minutes Total Time Includes: Examination of the Patient, Discharge Planning, Medication Reconciliation, Communication With Other Providers and Other Discharge Plan Discharge Items Patient Disposition: Drug & Alcohol Rehab Reason For Visit: SEPSIS Discharge Diagnosis: Sepsis Right middle lobe pneumonia Strep Throat Diabetes Anxiety/Mood disorder Constipation Activity: Resume your previous activity Non-emergency contact: Primary Care Provider Call non-emergency contact if: you have any medication questions and your temperature is above 101 Follow-up/Referrals: PCP,NO [Primary Care Provider] - Diet: Regular Addtl Attending Provider Instructions: Follow up with primary care provider in rehab facility Complete course of the antibiotic Pending Studies at Discharge: No Stand-Alone Forms: My [facility] Skilled Items Patient informed of condition?: Yes DNR: No Discharge Level of Care: Other Communicable Disease: No Discharge Prognosis: Stable Lines: None Urinary Catheter: No Medications and DC Order Prescriptions: New amoxicillin-pot clavulanate [Augmentin] 875-125 mg Tablet 1 tab PO BIDM 6 Days Qty: 12 RF: 0 doxycycline hyclate 100 mg Capsule 100 mg PO BID 3 Days Qty: 6 RF: 0 guaifenesin 200 mg Tablet 200 mg PO Q6H PRN (Reason: cough) Qty: 20 RF: 0 Continued hydroxyzine pamoate [Vistaril] 50 mg Capsule 50 mg PO TID RF: 0 lansoprazole 30 mg Capsule,Delayed Release(Dr/Ec) 30 mg PO BID RF: 0 diazepam [Valium] 10 mg Tablet 10 mg PO QPM RF: 0 buprenorphine-naloxone [Suboxone] 2-0.5 mg Film See Rx Instructions .ROUTE .COMPLEX RF: 0 gabapentin [Neurontin] 600 mg Tablet 600 mg PO HS RF: 0 quetiapine [Seroquel] 100 mg Tablet 100 mg PO HS RF: 0 trazodone 150 mg Tablet 150 mg PO HS RF: 0 melatonin 10 mg Tablet 10 mg PO HS RF: 0 levetiracetam [Keppra] 500 mg Tablet 500 mg PO BID RF: 0 buspirone 5 mg Tablet 5 mg PO HS PRN (Reason: Unknown) RF: 0 Discontinued metoprolol tartrate [Lopressor] 50 mg Tablet 50 mg PO BID RF: 0 prednisone 10 mg Tablet 10 mg PO UD RF: 0 azithromycin [Zithromax Z-Adithya] 250 mg Tablet 250 mg PO UD RF: 0 dextromethorphan-guaifenesin [Tussin DM] 10-100 mg/5 mL Syrup 10 ml PO Q4 MDD 6 doses in 24 hours PRN (Reason: Cough) RF: 0 Discharge Orders: Discharge Order (Routine); Ordered 07/15/19 Ordered By: Echo Cherry/Other Patient Handouts: A1C Admission Data Admit Date/Time: 07/12/19 02:13 Attending Provider: Echo Pelletier Admit Provider: Rex Casarez Primary Care Provider: PCP,NO Other Providers: Rex Casarez
== END 2019-07-15 16:00 | disposition alcohol treatment (31) | DRG 871 ==
LOC: ED 23:07 → 2N 07-12 02:13